=== PATIENT | male | born 1955 | race Caucasian/White ===

== ENCOUNTER 2020-12-16 02:19 | Outpatient (CLI) | payer BC, SELFPAY ==
[2020-12-16 10:02] LABS: HCT 48.5 % (40.0-50.0); HGB 15.7 g/dL (13.5-17.5); MCH 30.4 pg (27.0-33.0); MCHC 32.4 % (32.0-36.0); MPV 10.2 fL (8.0-11.0); Platelet Count 173 10^3/uL (130-400); RBC 5.16 10^6/uL (4.36-5.78); RDW 13.2 % (11.8-14.1); RDW-SD 46.1 fL; WBC 5.51 10^3/uL (4.4-10.8)
[2020-12-16 11:26] LABS: ALT 50 U/L (16-63); AST 24 U/L (15-37); Alkaline Phosphatase 62 U/L (46-116); Anion Gap 4.6 mmol/L (3-11); BUN 19 mg/dL (7-18); Bilirubin, Total 0.5 mg/dL (0.2-1.0); CO2 32.4 mmol/L (21.0-32.0); CREATININE 0.9 mg/dL (0.70-1.30); Calcium 9.1 mg/dL (8.5-10.1); Calculated LDL 111 mg/dL (<100); Chloride 105 mmol/L (98-107); Cholesterol 180 mg/dL (<200); Glucose 93 mg/dL (74-106); HDL Cholesterol 56 mg/dL (40-60); Magnesium 2.1 mg/dL (1.8-2.4); Potassium 4.6 mmol/L (3.5-5.1); Sodium 142 mmol/L (136-145); TSH (W/Ref FT4) 1.33 uIU/mL (0.36-3.74); Triglyceride 69 mg/dL (<150)
[2020-12-16 11:40] LABS: Vitamin D 25 Total 13.6 ng/mL (30-100)
== END 2020-12-16 02:20 | disposition home or self-care (01) ==
PROVIDERS: PCP Student in an Organized Health Care Education/Training Program; Visit Provider Student in an Organized Health Care Education/Training Program
DX: R73.01 Impaired fasting glucose (principal); E86.0 Dehydration; R53.83 Other fatigue; R25.1 Tremor, unspecified; G44.019 Episodic cluster headache, not intractable; G47.30 Sleep apnea, unspecified; M41.50 Other secondary scoliosis, site unspecified; Z79.899 Other long term (current) drug therapy; Z13.220 Encounter for screening for lipoid disorders
CPT/HCPCS: 36415; 80053; 80061; 82306; 85027; 83735; 84443

== ENCOUNTER 2021-01-07 00:30 | Outpatient (CLI) | payer BC, SELFPAY | END 2021-01-07 00:31 | disposition home or self-care (01) | LOC: RT 00:30 | PROVIDERS: PCP Student in an Organized Health Care Education/Training Program; Visit Provider Student in an Organized Health Care Education/Training Program | DX: R53.83 Other fatigue (principal); R51.9 Headache, unspecified | CPT/HCPCS: 94762 ==

== ENCOUNTER 2021-01-24 03:24 | Outpatient (CLI) | payer BC, SELFPAY ==
[2021-01-27 12:26] LABS: Testosterone, Total 934 ng/dL (240-950)
== END 2021-01-24 03:25 | disposition home or self-care (01) ==
LOC: LBO 03:24
PROVIDERS: PCP Student in an Organized Health Care Education/Training Program; Visit Provider Student in an Organized Health Care Education/Training Program
DX: R53.83 Other fatigue (principal)
CPT/HCPCS: 36415; 84402; 84403

== ENCOUNTER 2021-04-21 09:19 | Outpatient (CLI) | payer BC, SELFPAY ==
--- NOTE | 2021-04-21 09:15 | RT.EKG_ITS ---
APPROVED REPORT Exam: Resting ECG Reason for Exam: Z75.81, Z79.899 Patient Location: O HR:75 bpm ECG Measurements Heart Rate 75 AXIS IL 163 P 59 QRSd 92 QRS 78 QT 382 T 77 QTc 427 Conclusion Sinus rhythm...normal P axis, V-rate 60- 99
== END 2021-04-21 09:20 | disposition home or self-care (01) ==
LOC: DI.KIM 09:27
PROVIDERS: PCP Student in an Organized Health Care Education/Training Program; Visit Provider Student in an Organized Health Care Education/Training Program
DX: F90.0 Attention-deficit hyperactivity disorder, predominantly inattentive type (principal); Z79.899 Other long term (current) drug therapy
CPT/HCPCS: 93010

== ENCOUNTER 2021-11-09 01:01 | Outpatient (CLI) | payer BC, SELFPAY ==
--- NOTE | 2021-11-09 08:30 | DI.MRI_ITS ---
Exam(s) MR BRAIN ORBIT FACE NECK WO/W EXAM: MR BRAIN ORBIT FACE NECK WO/W CLINICAL HISTORY: LT SUPERIOR OBLIQUE PALSY, DIPLOPIA, H49.12, H53.2 TECHNIQUE: Multiplanar multisequence MRI of the brain was performed. Both pre and post contrast infused sequences were performed. Contrast injected was 17 mL Dotarem COMPARISON: CR CHEST 2 VIEWS PA,LAT from 06/25/2015 FINDINGS: MRI BRAIN WITHOUT AND WITH IV CONTRAST: There is no evidence of intracranial hemorrhage, mass effect, or shift of midline structures. There are no extra-axial fluid collections. The ventricles are not enlarged or shifted. There are no ring enhancing lesions in the brain and there is no abnormal meningeal enhancement. There is no abnormal signal on diffusion imaging to suggest restricted diffusion/acute ischemic event . SWI: No evidence of microhemorrhages on susceptibility imaging. Expected flow voids are noted. There is no obvious vascular malformation and no obvious aneurysm. There is no cerebellar tonsillar ectopia. Somewhat tortuous left dominant left vertebral artery at t he skull base slightly impresses upon the left side of the medulla oblongata, this of questionable si gnificance. No abnormal signal abnormality in the cerebellar hemispheres nor within thalami. There is no abnorma l periventricular signal abnormality. Pituitary/cavernous sinuses: The pituitary gland is not enlarged. There are no abnormalities seen in the suprasellar cistern nor within the cavernous sinuses and the outer prabhakar of the cavernous sinuse s maintain normal outward concave configuration. Optic chiasm appears unremarkable. Visualized paranasal sinuses are clear. MRI ORBITS WITHOUT AND WITH IV CONTRAST: ORBITS: The anterior and posterior chambers of the globes are intact. No evidence of dysconjugate ga ze. No proptosis nor enopthalmos. No abnormal findings at the level of the lends and retro conal vit reous fluid on either side nor at level the Retin-A nor at the level of the optic nerves and retro co nal fat on either side. No asymmetry in the size of the lacrimal glands. Extraocular muscles are un remarkable. OPTIC NERVES: The intracranial and extracranial portions of the optic nerves are within normal limits . Optic chiasm is within normal limits. No MRI evidence of optic neuritis identified. IMPRESSION: 1. No significant intracranial findings. 2. No significant findings in the orbits. DATA REPOSITORY:
[2021-11-09] MEDS: Normal Saline Flush 10 ML SYR IVP (09:15)
[2021-11-09] MEDS: Gadoterate meglumine 20 ML VIAL 17 ML IVP (09:16)
== END 2021-11-09 01:21 ==
PROVIDERS: PCP Student in an Organized Health Care Education/Training Program; Visit Provider Ophthalmology
DX: H49.12 Fourth [trochlear] nerve palsy, left eye (principal); H53.2 Diplopia
CPT/HCPCS: 70553; 70543

== ENCOUNTER 2022-03-20 02:37 | Outpatient (CLI) | payer BC, SELFPAY ==
[2022-03-20 11:22] LABS: Abs Immature Grans 0.01 10^3/uL (0.0-0.06); Absolute Basophil Count 0.04 10^3/uL (0.0-0.2); Absolute Lymphocyte Count 1.26 10^3/uL (1.2-3.4); Absolute Monocyte Count 0.43 10^3/uL (0.1-0.8); Absolute Neutrophil Count 3.85 10^3/uL (1.2-6.7); Basophils % 0.7; Eosinophils % 5.1; HCT 46.6 % (40.0-50.0); HGB 15.7 g/dL (13.5-17.5); Immature Grans % 0.2; Lymphocytes % 21.4; MCH 29.7 pg (27.0-33.0); MCHC 33.7 % (32.0-36.0); MCV 88 fL (80-95); MPV 9.9 fL (8.0-11.0); Monocytes % 7.3; Neutrophils % 65.3; Platelet Count 168 10^3/uL (130-400); RBC 5.29 10^6/uL (4.36-5.78); RDW 13.2 % (11.8-14.1); RDW-SD 42.5 fL; WBC 5.89 10^3/uL (4.4-10.8)
[2022-03-20 12:17] LABS: ALT 31 U/L (16-63); AST 18 U/L (15-37); Albumin 3.9 g/dL (3.4-5.0); Alkaline Phosphatase 71 U/L (46-116); Anion Gap 9.3 mmol/L (3-11); BUN 27 mg/dL (7-18); Bilirubin, Total 0.3 mg/dL (0.2-1.0); CO2 27.7 mmol/L (21.0-32.0); CREATININE 1.1 mg/dL (0.70-1.30); Calcium 8.9 mg/dL (8.5-10.1); Chloride 105 mmol/L (98-107); Ferritin 64 ng/mL (26-388); Glucose 118 mg/dL (74-106); Potassium 4.1 mmol/L (3.5-5.1); Sodium 142 mmol/L (136-145); Total Protein 7.4 g/dL (6.4-8.2); Vitamin B12 455 pg/mL (193-986)
[2022-03-20 12:30] LABS: Vitamin D 25 Total 29.2 ng/mL (30-100)
[2022-03-20 17:54] LABS: Iron 66 ug/dL (65-175); Total Iron Binding Capacity 303 ug/dL (250-450); Transferrin Sat 22 % (20-55)
[2022-03-20 19:25] LABS: Lab Add On Test DONE
[2022-03-20 20:08] LABS: Hemoglobin A1C 5.6 % (<5.7)
== END 2022-03-20 02:38 | disposition home or self-care (01) ==
LOC: LBO 02:37
PROVIDERS: PCP Student in an Organized Health Care Education/Training Program; Visit Provider Student in an Organized Health Care Education/Training Program
DX: R53.83 Other fatigue (principal); Z86.2 Personal history of diseases of the blood and blood-forming organs and certain disorders involving the immune mechanism; E55.9 Vitamin D deficiency, unspecified; R94.5 Abnormal results of liver function studies; B99.9 Unspecified infectious disease; E46 Unspecified protein-calorie malnutrition; G25.81 Restless legs syndrome; G47.9 Sleep disorder, unspecified; D64.9 Anemia, unspecified; R63.5 Abnormal weight gain; R73.09 Other abnormal glucose
CPT/HCPCS: 36415; 80053; 82306; 82607; 82728; 82746; 83036; 83540; 83550; 85025

== ENCOUNTER → 2022-05-31 12:36 | Outpatient (CLI) | payer BC, SELFPAY ==
--- NOTE | 2022-05-31 10:15 | DI.RAD_ITS ---
Exam(s) XR ELBOW LT COMPLETE EXAM: XR ELBOW LT COMPLETE CLINICAL HISTORY: eval joint space, pain x 3 mos, supination painful M79.602 PAIN LT ARM TECHNIQUE: COMPARISON: No exams were available for comparison FINDINGS: Three views were obtained. The cartilaginous joint spaces appear well maintained. There is no evide nce of an elbow joint effusion or hemarthrosis. No bony abnormality seen. IMPRESSION: RADIATION DOSE DELIVERED: Total DLP
== END ==
PROVIDERS: PCP Student in an Organized Health Care Education/Training Program; Visit Provider Student in an Organized Health Care Education/Training Program
DX: M79.602 Pain in left arm (principal)
CPT/HCPCS: 73080

== ENCOUNTER 2022-08-10 08:08 | Day surgery (SDC) | payer BC, SELFPAY ==
--- NOTE | 2022-08-09 21:09 | W.PM.DSUDISC ---
Date of service: 08/10/22 Time of Service: 10:09 Discharge Plan Disposition Patient Disposition: Home Condition: Good Discharge Details Reason For Visit: screening colonoscopy Attending Provider: Albino Maynard Primary Care Provider: Sanam Burnett Home Meds and New Rx's Prescriptions: Continued sertraline 100 mg tablet 200 mg PO DAILY Qty: 180 0RF Fish Oil 100-160-1,000 mg capsule PO ibuprofen 600 mg tablet 600 mg PO TID Qty: 60 2RF hlmsxefcep-rubkdtb-agfhyhnb 50-325-40 mg capsule 1 cap PO BID PRN (Reason: headache) Qty: 30 1RF Rx Instructions: for migraine headache topiramate [Topamax] 100 mg tablet 100 mg PO BID Qty: 180 3RF fluticasone propionate [Flonase Allergy Relief] 50 mcg/actuation spray,suspension 2 spray intranasal DAILY Qty: 48 4RF Rx Instructions: administer into each nostril montelukast [Singulair] 10 mg tablet 10 mg PO DAILY 90 Days Qty: 90 4RF sildenafil 100 mg tablet 100 mg PO ONCE Qty: 8 11RF Rx Instructions: administer 30 minutes to 4 hours before activity; cholecalciferol (vitamin D3) 25 mcg (1,000 unit) capsule 25 mcg PO DAILY Qty: 90 3RF Rx Instructions: Re-check, Spring 2021 cholecalciferol (vitamin D3) 1,250 mcg (50,000 unit) capsule 1,250 mcg PO QWEEK Qty: 10 0RF Rx Instructions: Take weekly; re-check D levels ~ June 2022 trazodone 50 mg tablet See Rx Instructions .ROUTE .COMPLEX Qty: 90 0RF Dose Instruction: TAKE 1 TABLET AT BEDTIME NEEDED FOR SLEEP Rx Instructions: TAKE 1 TABLET AT BEDTIME NEEDED FOR SLEEP dextroamphetamine sulfate 15 mg capsule, extended release 30 mg PO BID MDD 60mg Qty: 120 0RF Rx Instructions: Continue higher dose.. sumatriptan succinate 100 mg tablet 100 mg PO ONCE Qty: 27 3RF Rx Instructions: Take once prn headache. Ok to repeat in 2 hours. Do not take more than 2 in 24 hours. 27 pills = 3 month supply. bupropion HCl [Wellbutrin XL] 300 mg tablet extended release 24 hr 300 mg PO DAILY Qty: 90 3RF Discontinued bisacodyl [Dulcolax (bisacodyl)] 5 mg tablet,delayed release (DR/EC) 5 mg PO ONCE Qty: 4 0RF Rx Instructions: Take according to provider's instructions for colonoscopy prep. polyethylene glycol 3350 17 gram/dose powder 17 g PO ONCE Qty: 238 0RF Rx Instructions: To be taken as directed by prescriber's office for colonoscopy prep. Discharge Instructions Instructions: Hemorrhoids (GEN), Colorectal Polyps (GEN) Additional Instructions: 1. If tolerated, consume a soft, low fiber diet for 1-2 days. 2[address] Do not drive, drink alcohol, operate machinery, make critical decisions, or do activities that require coordination or balance for 24 hours. 3. Because air was put into your colon during the procedure, expelling air from your rectum (passing gas or farting) is normal. 4. You may not have a bowel movement for 1-3 days because of the colonoscopy prep. This is normal. 5. Go directly to the emergency room if you notice any of the following: Develop chills (warm to touch), or if you have a thermometer and your temperature is above 101 Difficulty breathing or difficultly swallowing Persistent vomiting Severe abdominal pain, other than gas cramps Severe chest pain Black, tarry stools Any bleeding ? exceeding one tablespoon 6. Call your physician if the site where your intravenous was started becomes red, swollen, painful, and warm to touch. 7. Your physician has reviewed your pre-procedure medications. Please continue to take those medications as previously ordered. You will be given specific information/education regarding any changes to your medications before leaving. Activity:: Activity as Tolerated Diet:: As Tolerated Discharge Orders Discharge Orders: Discharge Order (Routine); Ordered 08/09/22 Ordered By: Albino Maynard DS: Diagnosis Discharge Diagnosis (1) Screening for colon cancer: Status: Acute Asessment and Plan: We performed a colonoscopy today to check for polyps and other abnormalities. The quality of your preparation was excellent. The procedure went fantastic. We did identify 1 polyp around 70 cm from your anus. I removed this polyp entirely. I will contact you when I have results of the pathology report.
--- NOTE | 2022-08-09 21:11 | W.COLOREPORT ---
Date of service: 08/10/22 Time of Service: 10:13 Colonoscopy Report Date of procedure: 08/10/22 Pre-op diagnosis general: Screening colonoscopy Post-op diagnosis procedure note: other (Colorectal polyp, internal hemorrhoids) Procedure: colonoscopy Surgeon: Albino Maynard Anesthesia Type: General:No Airway Estimated blood loss (mL): 10 Pathology: other (Polyp around 70 cm from anus) Complications: None Disposition: same day Indications: Rivas is a 67 year old man with a first degree relative with colon cancer as well as a personal history of serrated sessile adenomas. He is here for his next screening colonoscopy Prep: Miralax/Dulcolax Procedure Start Time: 09:46 Procedure End Time: 10:01 Retraction Time: 11 Findings: Colon polyp around 70 cm, internal hemorrhoids Procedure Description: After the induction of monitored anesthetic care, and with the patient in left lateral decubitus position, I began by performing an external anorectal exam.? Perineum and skin were normal, as was the anal verge.? There was no evidence of external hemorrhoids.? Next, I performed a digital rectal exam.? I did not appreciate any abnormal findings.? Next, I advanced a colonoscope into the rectal vault.? I performed retroflexion.? There are grade 1 internal hemorrhoids.? Using insufflation, I then advanced the colonoscope beyond the rectal folds and into the sigmoid colon before advancing towards the cecum.? The quality of the prep was excellent.? The scope was noted to be in the cecum by identification of the ileocecal valve and appendiceal orifice.? I then began withdrawing the colonoscope using repeated irrigation as necessary for full evaluation of the colonic mucosa. Around 70 cm from the anal verge I identified a 0.5 cm polyp. ?It appeared pedunculated in character. ?I was able to remove this with a cold forcep polypectomy. ?I examined the site, and there was minimal bleeding. ?Once this was completed, I continued to withdraw the scope and examine the remainder of the colonic mucosa.?Once the scope was withdrawn to the level of the rectum, great care was taken to examine portions of the rectal folds.? Finally, the scope was withdrawn and the patient was brought to the same-day surgery recovery unit as the anesthetic wore off. ?The findings and instructions were shared with the patient prior to discharge.
[2022-08-10 08:44] VITALS: BP 147/83; PULSE 68; RESP 18; TEMP 36.3; O2SAT 98
[2022-08-10] MEDS: Lactated Ringers 1,000 ML 80 ML IV (09:05)
--- NOTE | 2022-08-10 09:22 | ANES.PREOP_ITS ---
General Info Date of Service Date Performed: 08/10/22 Height: 6 ft Weight: 90 kg Body Mass Index (BMI): 26.9 Surgical Procedure: Operation Date: 08/10/22 09:50 Proposed Procedure Side Surgeon koffi Maynard MD Meds Allergies and Home Medications Allergies Allergy/AdvReac Type Severity Reaction Status Date / Time No Known Allergies Allergy Verified 08/10/22 08:37 Home Medication Medication Instructions Recorded sildenafil 100 mg tablet 100 mg PO ONCE #8 tabs 09/22/20 ibuprofen 600 mg tablet 600 mg PO TID #60 tabs 12/29/20 ptbyzktiev-scxqkil-uvorvirj 50 1 cap PO BID PRN headache #30 caps 07/22/21 mg-325 mg-40 mg capsule topiramate 100 mg tablet (Topamax) 100 mg PO BID #180 tab-caps 07/22/21 cholecalciferol (vitamin D3) 25 25 mcg PO DAILY #90 caps 09/01/21 mcg (1,000 unit) capsule fluticasone propionate 50 2 spray intranasal DAILY #48 grams 10/26/21 mcg/actuation nasal spray,suspension (Flonase Allergy Relief) montelukast 10 mg tablet 10 mg PO DAILY 90 days #90 tabs 10/26/21 (Singulair) cholecalciferol (vitamin D3) 1,250 1,250 mcg PO QWEEK #10 caps 03/20/22 mcg (50,000 unit) capsule sertraline 100 mg tablet 200 mg PO DAILY #180 tab-caps 04/28/22 trazodone 50 mg tablet See Rx Instructions .Route 05/29/22 .COMPLEX #90 tabs dextroamphetamine sulfate 15 mg 30 mg PO BID #120 caps 06/30/22 capsule,extended release bupropion HCl 300 mg 24 hr tablet, 300 mg PO DAILY #90 tab-caps 07/17/22 extended release (Wellbutrin XL) sumatriptan succinate 100 mg tablet 100 mg PO ONCE #27 tab-caps 07/17/22 omega 5-vfp-qze-fish oil 100 cap PO 07/24/22 mg-160 mg-1,000 mg capsule (Fish Oil) Current Visit Medications: Current Medications Generic Name Dose Route Start Last Admin Trade Name Freq PRN Reason Stop Dose Admin Hyoscyamine Sulfate 0.125 mg 08/09/22 21:13 Hyoscyamine 0.125 Mg Sl/Oral/Chew SL DIRECTED PRN Ringer's Solution 1,000 mls @ 80 mls/hr 08/10/22 06:00 08/10/22 09:05 IV 09/08/22 23:59 80 mls/hr INFUSION MALIK Administration IV Miscellaneous Supplies 1 each 08/10/22 06:00 Iv Access IV 09/08/22 23:59 DIRECTED MALIK Ondansetron HCl 4 mg 08/09/22 21:13 Ondansetron 4 Mg/2 Ml Vial IVP Q4H PRN PRN Nausea / Vomiting Sodium Chloride 0 ml 08/10/22 06:00 Normal Saline Flush 10 Ml Syr IV 09/08/22 23:59 PRN PRN Sodium Chloride 0 ml 08/10/22 06:00 Normal Saline 10 Ml Vial IJ 09/08/22 23:59 DIRECTED PRN Sterile Water 0 ml 08/10/22 06:00 Water,Injection,Sterile 10 Ml Vial IJ 09/08/22 23:59 DIRECTED PRN PFSH Active Problems Active Problems: Problem Status Onset Code ADHD (attention deficit hyperactivity disorder), 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 Adenoma of colon at hepatic flexure 08/13/17 D12.3 Anxiety 04/14/13 F41.9 Depression 08/04/15 F32.9 Episodic cluster headache 12/17/12 G44.019 Essential tremor 04/14/13 G25.0 Family history of colon cancer 12/17/12 Z80.0 Hyperlipidemia 12/17/12 E78.5 IFG (impaired fasting glucose) 06/27/17 R73.01 Migraine 12/17/12 G43.909 Mild obstructive sleep apnea 10/11/14 G47.33 Post-void dribbling 08/04/15 N39.43 Scoliosis associated with other condition 12/17/12 M41.50 Vitiligo 05/15/13 L80 Plantar fasciitis 12/17/12 M72.2 Vision changes H53.9 Fatigue R53.83 Back pain M54.9 Hypovitaminosis D E55.9 Nasal polyposis J33.9 Hyposmia R43.8 Diplopia H53.2 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 Extraocular movements intact Weight gain R63.5 Skin lesion of chest wall L98.9 Excessive somnolence disorder G47.10 Low serum vitamin D R79.89 Left arm pain M79.602 Muscle strain of forearm S56.919A AMAURY (obstructive sleep apnea) G47.33 Screening for colon cancer Z12.11 Medical History Medical History ADHD Allergic rhinitis Cluster headaches Family history of colon cancer GERD (gastroesophageal reflux disease) IFG (impaired fasting glucose) Internal hemorrhoids AMAURY (obstructive sleep apnea) Surgical History Surgical History Colonoscopy - MAC (08/13/17) 2006, 2011 H/O endoscopy Hernia, R & L B/L mesh repair; Dr. Fulton [facility] [place] Repair of inguinal hernia (~2007) Tobacco Smoking/Tobacco Use Status: Never Alcohol Alcohol Intake: current Alcohol intake frequency: 0-2 drinks per day Alcohol type: hard liquor Substance Use Substance use: Occasionally Substance use type: marijuana Vital Signs and Lab Results Vital Signs Most Recent Vital Signs in EMR: Most Recent Vital Signs Temp Pulse Resp BP Pulse Ox 36.3 C L 68 18 147/83 H 98 08/10/22 08:44 08/10/22 08:44 08/10/22 08:44 08/10/22 08:44 08/10/22 08:44 Lab Results Blood Type / Crossmatch: No Data to Display Complete Blood Count: No Data to Display Complete Metabolic Panel: No Data to Display Liver Function Panel: No Data to Display Coagulation Panel: No Data to Display Cardiac Panel: No Data to Display Arterial Blood Gas: No Data to Display Venous Blood Gas: No Data to Display Pancreas Panel: No Data to Display Thyroid Panel: No Data to Display Infectious Disease: No Data to Display Blood Cultures: No Data to Display Toxicology Panel: No Data to Display Anesthesia Assessment and Plan Anesthesia History Personal History: No History of Anesthesia Complications Family History: No Family History of Anesthesia Complications Exercise Tolerance Exercise Tolerance: Metabolic Equivalents>4 Pertinent Negatives Pertinent Negatives: No Symptoms of GERD Cardiac & Pulmonary Exam Cardiac Exam: Normal S1/S2 Heart Sounds Pulmonary Exam: Clear Bilateral Breath Sounds Implantable Cardiac Device Does patient have a Pacemaker or an ICD?: No Airway Exam Known Difficult Airway: No Mallampati Class: 3 Mouth Opening: Normal (> 3cm) Thyromental Distance: Greater than 3 cm Neck Range of Motion: Full ROM Neck Circumference: Normal Teeth Condition: Generalized Poor Dentition ASA Classification ASA Score: ASA 2 Emergency Case?: No NPO Status NPO Status: NPO Clears >2 hours, Solids >8 hours Anesthesia Plan Resuscitation Status: Full Code Anesthesia Technique: General Anesthesia Airway Planned: Natural Airway Pain Management: Surgeon and patient request nerve block Monitors Used: Standard Monitors
[2022-08-10 09:33] VITALS: BMI 26.9
--- NOTE | 2022-08-10 09:55 | BOWEL_PTH ---
PATIENT: Moreno Flores LOC: [facility] U#:[id number] AGE/SX: 67/M ROOM: RE08/10/[address]: Albino Maynard MD : 1955 BED: DIS: 08/10/2022 SPEC #: [id number] RECD: 08/10/22 12:56 STATUS: YOLIE REQ #: [id number] SILVIA: 08/10/22 09:[address]: Albino Maynard DEPT: Surgical Specimen RECD BY: Treasure Brownlee ENTERED: 08/10/22 12:57 SP TYPE: Bowel OTHR DR: Sanam Burnett DO Tissues: 1 - BIOPSY BOWEL Procedures: GROSS AND MICRO LEVEL 4 Comments: [id number]
[2022-08-10 10:15] VITALS: BP 128/95; PULSE 81; RESP 16; TEMP 36.2; O2SAT 93
--- NOTE | 2022-08-10 10:21 | W.ANESPOSTOP ---
Postoperative Evaluation Date, Time and Location Date Performed: 08/10/22 Time Performed: 10:27 Patient Location: Day Surgery Unit Vital Signs Most Recent Imported Vital Signs: Most Recent Vital Signs Temp Pulse Resp BP Pulse Ox 36.3 C L 68 18 147/83 H 98 08/10/22 08:44 08/10/22 08:44 08/10/22 08:44 08/10/22 08:44 08/10/22 08:44 Most Recent Manually Entered Vital Signs: Adult Blood Pressure: 128/95 Heart Rate: 81 Respirations: 16 Oxygen Saturation (%): 93 Temperature (C): 36.2 C Pain Score (0-10 Scale): 0 Assessment Mental Status: Awake (Alert & Oriented to Patient Baseline) Airway and Respiratory Function: Patent airway with normal (patient baseline) respiratory exam Cardiovascular Function: Hemodynamically Stable Hydration Status: Adequately Hydrated Nausea & Vomiting: No Nausea or Vomiting Pain: Pt. Denies Any Pain Peripheral Nerve Block: Patient did not receive a nerve block
[2022-08-10 10:30] VITALS: BP 128/95; PULSE 81; RESP 16; TEMPC 36.2; O2SAT 93
[2022-08-10 10:50] VITALS: BP 143/83; PULSE 71; RESP 18; TEMP 36.3; O2SAT 96
[2022-08-10] MEDS: Hyoscyamine 0.125 MG SL/ORAL/CHEW SL (10:54)
== END 2022-08-10 08:09 | disposition home or self-care (01) ==
PROVIDERS: PCP Student in an Organized Health Care Education/Training Program; Visit Provider Surgery
PROC: 0DJD8ZZ Inspection of Lower Intestinal Tract, Via Natural or Artificial Opening Endoscopic (ICD-10-PCS; CPT 45378; principal; 2022-08-10 09:45)
DX: Z12.11 Encounter for screening for malignant neoplasm of colon (principal); K63.5 Polyp of colon; Z80.0 Family history of malignant neoplasm of digestive organs; Z86.010 Personal history of colon polyps; K64.8 Other hemorrhoids
CPT/HCPCS: 45380; 88305; J3490

== ENCOUNTER 2022-10-12 03:00 | Outpatient (CLI) | payer MEDICARE, BC, SELFPAY ==
[2022-10-12 13:00] LABS: Anion Gap 9.5 mmol/L (3-11); BUN 32 mg/dL (7-18); CO2 26.5 mmol/L (21.0-32.0); CREATININE 1.2 mg/dL (0.70-1.30); Calcium 9.1 mg/dL (8.5-10.1); Chloride 107 mmol/L (98-107); Estimated GFR 67.11 (mL/min/1.73m2); Glucose 114 mg/dL (74-106); Potassium 4.2 mmol/L (3.5-5.1); Sodium 143 mmol/L (136-145)
[2022-10-12 13:05] LABS: Iron 66 ug/dL (65-175); Total Iron Binding Capacity 344 ug/dL (250-450); Transferrin Sat 19 % (20-55)
[2022-10-12 13:27] LABS: Vitamin D 25 Total 33.9 ng/mL (30-100)
== END 2022-10-12 03:01 | disposition home or self-care (01) ==
LOC: LOS 03:01
PROVIDERS: PCP Student in an Organized Health Care Education/Training Program; Visit Provider Student in an Organized Health Care Education/Training Program
DX: R53.83 Other fatigue (principal); E46 Unspecified protein-calorie malnutrition; E55.9 Vitamin D deficiency, unspecified; R79.89 Other specified abnormal findings of blood chemistry; G43.909 Migraine, unspecified, not intractable, without status migrainosus
CPT/HCPCS: 36415; 80048; 82306; 83540; 83550

== ENCOUNTER → 2023-01-08 14:05 | Outpatient (BNVA) | payer MEDICARE, BC, SELFPAY | PROVIDERS: PCP Student in an Organized Health Care Education/Training Program; Referring Provider Student in an Organized Health Care Education/Training Program | DX: M77.12 Lateral epicondylitis, left elbow (principal); M70.22 Olecranon bursitis, left elbow | CPT/HCPCS: 99213 ==

== ENCOUNTER → 2023-02-15 14:27 | Outpatient (BNVA) | payer MEDICARE, BC, SELFPAY | PROVIDERS: PCP Student in an Organized Health Care Education/Training Program; Referring Provider Student in an Organized Health Care Education/Training Program; Visit Provider Surgery | DX: L98.9 Disorder of the skin and subcutaneous tissue, unspecified (principal); L82.1 Other seborrheic keratosis; D17.9 Benign lipomatous neoplasm, unspecified | CPT/HCPCS: 99213 ==

== ENCOUNTER → 2023-03-05 10:00 | Outpatient (BNVA) | payer MEDICARE, BC, SELFPAY | PROVIDERS: PCP Student in an Organized Health Care Education/Training Program; Referring Provider Student in an Organized Health Care Education/Training Program; Visit Provider Surgery | DX: L82.1 Other seborrheic keratosis (principal) | CPT/HCPCS: 11402; 99212 ==

== ENCOUNTER 2023-03-05 11:08 | Outpatient (REF) | payer MEDICARE, BC, SELFPAY ==
--- NOTE | 2023-03-05 11:05 | SKI_PTH ---
PATIENT: Moreno Flores LOC: [facility] U#:[id number] AGE/SX: 67/M ROOM: RE03/05/[address]: Lolly Pappas : 1955 BED: DIS: 03/05/2023 SPEC #: [id number] RECD: 03/05/23 12:54 STATUS: YOLIE REMiguel #: [id number] SILVIA: 03/05/23 11:[address]: Lolly Pappas DEPT: Surgical Specimen RECD BY: Treasure Brownlee ENTERED: 03/05/23 12:54 SP TYPE: GABRIELA FERNANDES DR: Sanam Burnett DO Tissues: 1 - SKIN BIOPSY(SHAVE/PUNCH) Procedures: SKIN LEVEL 4 Comments: [id number]
== END 2023-03-05 11:09 | disposition home or self-care (01) ==
LOC: LBN 11:08
PROVIDERS: PCP Student in an Organized Health Care Education/Training Program; Visit Provider Surgery
DX: L82.1 Other seborrheic keratosis (principal)
CPT/HCPCS: 88305

== ENCOUNTER → 2023-03-15 13:02 | Outpatient (BNVA) | payer MEDICARE, BC, SELFPAY | PROVIDERS: PCP Student in an Organized Health Care Education/Training Program; Referring Provider Student in an Organized Health Care Education/Training Program; Visit Provider Surgery | DX: Z48.817 Encounter for surgical aftercare following surgery on the skin and subcutaneous tissue (principal); L72.3 Sebaceous cyst; L82.1 Other seborrheic keratosis ==

== ENCOUNTER 2023-07-19 01:51 | Outpatient (CLI) | payer MEDICARE, BC, SELFPAY ==
[2023-07-19 10:01] LABS: Iron 102 ug/dL (65-175)
[2023-07-19 10:17] LABS: ALT 34 U/L (16-63); AST 15 U/L (15-37); Albumin 3.8 g/dL (3.4-5.0); Alkaline Phosphatase 98 U/L (46-116); Anion Gap 6.4 mmol/L (3-11); BUN 21 mg/dL (7-18); Bilirubin, Total 0.5 mg/dL (0.2-1.0); CO2 31.6 mmol/L (21.0-32.0); CREATININE 0.9 mg/dL (0.70-1.30); Calcium 9.4 mg/dL (8.5-10.1); Calculated LDL 147 mg/dL (<100); Chloride 101 mmol/L (98-107); Cholesterol 215 mg/dL (<200); Estimated GFR 94.19 (mL/min/1.73m2); Ferritin 66 ng/mL (26-388); Glucose 104 mg/dL (74-106); HDL Cholesterol 52 mg/dL (40-60); Potassium 3.9 mmol/L (3.5-5.1); Sodium 139 mmol/L (136-145); Total Protein 7.8 g/dL (6.4-8.2); Triglyceride 82 mg/dL (<150)
[2023-07-19 10:24] LABS: Vitamin D 25 Total 24.5 ng/mL (30-100)
== END 2023-07-19 01:52 | disposition home or self-care (01) ==
LOC: LBO 01:51
PROVIDERS: PCP Student in an Organized Health Care Education/Training Program; Visit Provider Student in an Organized Health Care Education/Training Program
DX: L80 Vitiligo (principal); I10 Essential (primary) hypertension; E55.9 Vitamin D deficiency, unspecified
CPT/HCPCS: 36415; 80053; 80061; 82306; 82728; 83540

== ENCOUNTER → 2023-07-20 00:31 | Outpatient (CLI) | payer MEDICARE, BC, SELFPAY ==
--- NOTE | 2023-07-20 08:45 | DI.US_ITS ---
Exam(s) US CAROTID EXAM: US CAROTID CLINICAL HISTORY: evaluate for stenosis, plaque load,DIZZINESS,ATHEROSCLEROSIS,SYNCOPE,R55. TECHNIQUE: Ultrasound carotids performed using grayscale, color-flow, and spectral Doppler imaging. COMPARISON: No exams were available for comparison FINDINGS: RIGHT CAROTID ARTERY: Plaque: Minimal. Velocity elevation: None. LEFT CAROTID ARTERY: Plaque: Minimal. Velocity elevation: None. VERTEBRAL ARTERIES: Antegrade flow. Measurements: R Bulb: 61.2cm/s PS / 10.6cm/s ED R CCA: 86.7cm/s PS / 10.2cm/s ED R ECA: 60.1cm/s PS / 13.7cm/s ED R ICA Prox: 89.4cm/s PS / 17.5cm/s ED R ICA Mid: 62cm/s PS / 15.7cm/s ED R ICA Distal: 79.1cm/s PS /26cm/s ED R Vert: 44.9cm/s PS / 8.9cm/s ED R SVR: 1 R DVR: 1.7 L Bulb: 67.2cm/s PS / 15.4cm/s ED L CCA: 69.8cm/s PS / 14.1cm/s ED L ECA: 121.1cm/s PS / 12.8cm/s ED L ICA Prox: 54.4cm/s PS / 12.1cm/s ED L ICA Mid: 79.5cm/s PS / 21.9cm/s ED L ICA Distal: 91.7cm/s PS / 23.6cm/s ED L Vert: 78.3cm/s PS / 21.7cm/s ED L SVR: 1.3 L DVR: 1.7 IMPRESSION: No evidence for hemodynamically significant carotid stenosis. Criteria for Carotid Stenosis: Normal: ICA PSV <125 cm/s no plaque or intimal thickening is visible. <50% stenosis: ICA PSV <125 cm/s and plaque or intimal thickening is visible. 50-69% stenosis: ICA PSV is 125-250 cm/s and plaque is visible. >70% stenosis to near occlusion: ICA PSV >250 cm/s with visible plaque and luminal narrowing. DATA REPOSITORY:
== END ==
PROVIDERS: PCP Student in an Organized Health Care Education/Training Program; Visit Provider Student in an Organized Health Care Education/Training Program
DX: E78.5 Hyperlipidemia, unspecified (principal); R42 Dizziness and giddiness; R55 Syncope and collapse; Z82.3 Family history of stroke
CPT/HCPCS: 93880

== ENCOUNTER 2024-09-10 01:14 | Outpatient (CLI) | payer MEDICARE, BC, SELFPAY ==
[2024-09-10 09:24] LABS: Anion Gap 5.1 mmol/L (3-11); BUN 24 mg/dL (7-18); CO2 31.9 mmol/L (21.0-32.0); CREATININE 1.2 mg/dL (0.70-1.30); Calcium 9.4 mg/dL (8.5-10.1); Calculated LDL 120 mg/dL (<100); Chloride 103 mmol/L (98-107); Cholesterol 192 mg/dL (<200); Estimated GFR 66.28 (mL/min/1.73m2); Glucose 108 mg/dL (74-106); HDL Cholesterol 57 mg/dL (40-60); Potassium 4.4 mmol/L (3.5-5.1); Sodium 140 mmol/L (136-145); Triglyceride 78 mg/dL (<150)
== END 2024-09-10 01:15 | disposition home or self-care (01) ==
LOC: LBO 01:15
PROVIDERS: Student in an Organized Health Care Education/Training Program; PCP Nurse Practitioner Family; Referring Provider Nurse Practitioner Family; Visit Provider Nurse Practitioner Family
DX: N20.0 Calculus of kidney (principal)
CPT/HCPCS: 36415; 80048; 80061; 82947; 84153

== ENCOUNTER 2024-09-12 01:24 | Outpatient (CLI) | payer MEDICARE, BC, SELFPAY ==
--- NOTE | 2024-11-20 13:15 | W.NUTRFU ---
Date of service: 09/12/24 Time of Service: 11:30 Nutrition Note NOTE: Rivas referred for nutrition appt for MNT due to Hx of GERD and current BMI >30. I echoed mark' provider recommendations that weight loss will most likely have the most impact on GERD sx's. We also reviewed traditional recommendations with handouts - avoid liquids with meals, avoid spicy/greasy foods and common trigger foods like chocolate, onions, etoh, carbonated bevs, citrus/acid foods. Discussed weight loss and need for targeted exercise, good sleep and good sleep managment as approaches as well. REviewed items that might be considered low hanging fruit with Rivas - limit added sugars and refined starches, increase fiber and plant protein chocies, limit saturated and total fat to reduce kcals. We discussed some sample menu options and setting up menus to be somewhat repetitive for the day time and can change up dinner as he feels the need for different items. Discussed protein and fiber choices at each meal and at any snacks (but stressed no more than 2 PLANNED snacks per day) and no eating after 7pm. Encouraged 2L of water as good fluid goal and reviewed how to track added sugar and fiber to help meet his goals. gave pt my card to contact with any more questions, need to additional resources or desire/need for more follow ups. Time Spent in Nutritional Counseling and Treatment: 25 min
== END 2024-09-12 01:25 | disposition home or self-care (01) ==
LOC: DS 01:24
PROVIDERS: PCP Nurse Practitioner Family; Visit Provider Dietitian, Registered
DX: K21.9 Gastro-esophageal reflux disease without esophagitis (principal)
CPT/HCPCS: 00123; 97802

== ENCOUNTER 2024-12-04 03:53 | Outpatient (CLI) | payer MEDICARE, BC, SELFPAY ==
[2024-12-04 11:05] LABS: Bacteria Rare HPF (Negative); C & S Indicated? No; Crystals Negative HPF (Negative); Epithelial Cells Negative HPF (Negative); Mucus Negative (Negative); RBC 0-2 HPF (0-2)
[2024-12-04 11:06] LABS: BUN 27 mg/dL (7-18); CREATININE 0.9 mg/dL (0.70-1.30); Calcium 9.4 mg/dL (8.5-10.1); Chloride 105 mmol/L (98-107); Estimated GFR 93.61 (mL/min/1.73m2); Glucose 96 mg/dL (74-106); Potassium 4.3 mmol/L (3.5-5.1); Sodium 143 mmol/L (136-145)
[2024-12-04 12:31] LABS: Calcium 9.4 mg/dL (8.5-10.1); TSH (W/Ref FT4) 2.66 uIU/mL (0.36-3.74); Vitamin D 25 Total 30 ng/mL (30-100)
[2024-12-04 19:27] LABS: Parathyroid Hormone,Intact 60 pg/mL (19-88)
== END 2024-12-04 03:54 | disposition home or self-care (01) ==
LOC: LBO 03:54
PROVIDERS: Student in an Organized Health Care Education/Training Program; Absent Provider Nurse Practitioner Family; PCP Nurse Practitioner Family; Visit Provider Nurse Practitioner Family
DX: K05.6 Periodontal disease, unspecified (principal); E55.9 Vitamin D deficiency, unspecified; R53.83 Other fatigue; N20.0 Calculus of kidney
CPT/HCPCS: 36415; 80048; 82306; 81015; 82310; 83970; 84443

== ENCOUNTER → 2025-03-16 10:49 | Outpatient (BNVA) | payer MEDICARE, BC, SELFPAY | PROVIDERS: PCP Nurse Practitioner Family; Referring Provider Nurse Practitioner Family; Visit Provider Nurse Practitioner Gerontology | DX: N20.0 Calculus of kidney (principal) | CPT/HCPCS: 99215; 81002 ==

== ENCOUNTER 2025-04-02 07:05 | Day surgery (SDC) | payer MEDICARE, BC, SELFPAY ==
[2025-04-02] VITALS (25 sets, daily range): BP systolic 119–160; BP diastolic 69–96; PULSE 56–84; RESP 10–24; TEMP 35.9–36.7; O2SAT 92–97; BMI 30.9
[2025-04-02] MEDS: Lactated Ringers 1,000 ML 80 ML IV (07:53)
--- NOTE | 2025-04-02 08:11 | W.PM.HP.N ---
Date of service: 04/02/25 Time of Service: 08:11 Assessment and Plan Assessment and plan (1) Right distal ureteral calculus: Status: Acute Assessment and plan: Clinically, he has not passed his ureteral stone. We will plan to do cystoscopy, right retrograde pyelogram, right ureteroscopy and possible holmium laser lithotripsy of his stone. If the distal ureteral stone can be addressed rather easily, we have the option of running a flexible ureteroscope up to the kidney to address his nonobstructing renal stones. History of Present Illness History of Present Illness Chief Complaint: Right ureteral stone Narrative: This is a 69-year-old gentleman who has a history of calcium based stones. About a year ago, he had an obstructing right ureteral stone that measured about 4 mm and required ureteroscopic stone extraction. He was recently in an emergency department in the [facility] with renal colic. He was found to have a 7 mm distal ureteral stone. He has been treated conservatively but has not passed his stone. He presents now for stone manipulation. He is having right groin discomfort. His symptoms have been managed with tramadol. He is not having any dysuria or gross hematuria. He has not gone into retention. Review of Systems Narrative: No fevers or chills Cataracts. No dysphasia No diabetes or thyroid dysfunction Sleep apnea. No shortness of breath, cough or hemoptysis No chest pain or palpitations Diarrhea. No hepatitis, ulcers, jaundice Hx migraines. Troclear nerve palsy (left eye). No seizures or strokes No bleeding disorders or anemia No gout PFSH All Active Problems (Updated 04/02/25 @ 08:15 by Kalyan Gutierrez MD) Right distal ureteral calculus (Acute) Periodontal disease (Acute) Left elbow pain (Acute) Right shoulder pain (Acute) Nephrolithiasis (Chronic) Obesity (Chronic) Nuclear sclerotic cataract of both eyes (Acute) from [facility] [place] [facility] Optho note form 07/21/24.HE Calculus of ureterovesical junction (UVJ) (Acute) RT, 4mm, passed (per [facility]).. mild hydronephrosis Trochlear nerve palsy, left eye (Acute) [facility] OPH 07/03/23 Severe obstructive sleep apnea (Acute) Wkg with sleep clinic Atherosclerotic plaque (Acute) Minimal per carotid US, 08/2023.. 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 Lock psychiatrist 2015 . Meds reviewed with psych support. TWO 36mg tabs (2' $$). Anxiety (Chronic 04/14/13) Retired, w/ some improved anxiety, but fatigue, 's & ppwk strain. Stress and worry associated with work, impacts sleep Migraine (Acute 12/17/12) Cluster per former PCP, Fiorecet works well as well as sumatriptan (usually for the daytime). Headache disorder (Acute) Ice-pick headache x 4 days .. seconds q 10-20 seconds, but excruciating with no relief from Ibu, Fioriol, Heat, Maxalt.. Exedrine. Cluster headaches (Acute) Episodic cluster headache (Acute 12/17/12) Fiorinol, Sumatriptan. Hyperlipidemia (Acute 12/17/12) 06/2017 labwork: 10-year ASCVD risk = ~6.7% --> no statin indicated at this time Erectile dysfunction (Chronic) Good results with silden .. Hx Urol (-) IFG (impaired fasting glucose) (Acute 06/27/17) Fatigue (Acute) Vitiligo (Acute 05/15/13) Hypovitaminosis D (Acute) Re-starting lower, daily dose, 04/2023 .. 50,000 weekly, Rx 03/20/22per December 2020 labs [ ] 1,000u x 90 days Rx Nasal polyposis (Acute) Hyposmia (Acute) Vertebral artery disease (Acute) left, tortuous, impresses lft med oblongata (unk significance). Vision changes (Acute) Blurry vision continues with distance. Double vision seems corrected with new glasses (6 lenses in past few months @ [place]). Cataracts? Astygmatism? [ ] [facility] Diplopia (Acute) [facility] Ophthalmology note 07/21/24, ordered repeat MRI, AChR antibodies & creatinine ordered.Continue use of prism glasses. Cataracts noted.HE Progressive Double Vision per FACUNDO Alex. Extraocular movements intact (Acute) extraoc mm unremarkable, per mri, 11/2021 Medical History Mild obstructive sleep apnea (10/11/14) 07/10/24 Sleep note: Pt returned CPAP d/t worsening reflux @ noc and inability to exhale against pressure, even after lowered. Would like to try Inspire-referred to [facility] for this.HE Progressed to severe! 09/2023 .. C-Pap, but machine not covered. Dental johnie has helped (Dr. Irving?) Hx living w/ , amicably, until her in ~ 2021 Sebaceous cyst Seborrheic keratoses Tubular adenoma of colon GERD (gastroesophageal reflux disease) Muscle strain of forearm Left, probably supinator 2' supinating motion pain. Left arm pain post MRI, injection-related?? @ elbow, mm insertion.. ~ chipped bone Skin lesion of chest wall Back pain Lower mid-back, painful with bending .. Painful spasms. Scoliosis associated with other condition (12/17/12) Lumbar spine on x-ray Post-void dribbling (08/04/15) Family history of colon cancer (12/17/12) mother combined with recent finding of 2 sessile polyps (in 3 years) has raised his concern Essential tremor (04/14/13) 2013: Benign not bothersome Depression (08/04/15) Hx depression, but amicable divorce (shared home until she , 2022) Adenoma of colon at hepatic flexure (08/13/17) sessile serrated adenoma Allergic rhinitis Family history of colon cancer IFG (impaired fasting glucose) Internal hemorrhoids AMAURY (obstructive sleep apnea) Surgical History H/O endoscopy Hernia, R & L B/L mesh repair; Dr. Fulton [facility] [place] Repair of inguinal hernia (~2007) Colonoscopy - MAC (08/13/17) 2006, 2011, 2022 Family History Mother Disorder of thyroid gland Personal history of malignant neoplasm colon Father , HF at age 92. Hypertensive disorder, systemic arterial Heart disease pacemaker Parkinsonism Sister Disorder of thyroid gland Sister Disorder of thyroid gland Social History Smoking/Tobacco Use Status: Never Smoking risk assessment performed?: Yes Alcohol Intake: current Alcohol Intake frequency: a few times a week Alcohol type: hard liquor Drug use: Occasionally Substance use type: marijuana Details: 04/02/25: smoked marijuana 04/01/25 Adopted: No Caregiver/Support person: No Foster care: No Housing: house Number of Children: 2 number of grandchildren: 3 Communication Needs: Corrective Lenses Education Level: college Details: Bachelor's Do you need help understanding health information?: Rarely current occupation: Physician Practice Consultant - Retired Pets and animals: Yes Pets and animals: dog(s) Sexually active: Yes Do you think of yourself as: straight/heterosexual Current gender identity: male What is your relationship status?: How often do you talk on the phone with friends or family?: three or more times per week How often do you get together with friends or relatives?: once per week Do you belong to any clubs or organized social groups?: no Panel score (0-1 are the most socially isolated patients): 1 What type of physical activity do you participate in: walking Duration: 15-30 minutes/day Frequency: 3-4 times per week Angie/Ad[employer]: [employer] Special angie needs: No Seatbelt use: always Helmet use: Yes Drive intox or ride w/intox class c truck driver: No Do you feel safe at home: Yes Do you feel safe in your relationship?: Yes Meds Allergies and Home Medications Allergies Allergy/AdvReac Type Severity Reaction Status Date / Time No Known Allergies Allergy Verified 04/02/25 07:40 Home Medications ?Medication ?Instructions ?Recorded ?Confirmed ?Type irftsuebdh-mvzswut-trqzsyny 50 1 cap PO BID PRN headache #30 caps 10/14/23 04/02/25 Rx mg-325 mg-40 mg capsule fluticasone propionate 50 2 spray intranasal DAILY #48 grams 10/14/23 04/02/25 Rx mcg/actuation nasal spray,suspension (Flonase Allergy Relief) tadalafil 20 mg tablet 20 mg PO DAILY PRN sexual activity 08/08/24 04/02/25 Rx #20 tabs omeprazole 20 mg capsule,delayed 20 mg PO DAILY #30 caps 09/05/24 04/02/25 Rx release potassium and sodium citrates 50 tab PO kidney stones 09/05/24 11/25/24 History mg-950 mg tablet sumatriptan succinate 100 mg tablet See Rx Instructions .Route 10/14/24 04/02/25 Rx .COMPLEX #27 tabs ibuprofen 600 mg tablet (IBU) See Rx Instructions .Route 11/05/24 04/02/25 Rx .COMPLEX #60 tabs cholecalciferol (vitamin D3) 50 50 mcg PO DAILY #90 caps 11/25/24 04/02/25 Rx mcg (2,000 unit) capsule tamsulosin 0.4 mg capsule (Flomax) 0.4 mg PO QHS 03/16/25 04/02/25 History trazodone 50 mg tablet See Rx Instructions .Route 03/16/25 04/02/25 Rx .COMPLEX #90 tabs tramadol 50 mg tablet 50 mg PO TID-QID PRN pain #30 tabs 03/18/25 04/02/25 Rx Exam Const General: cooperative Neck Neck: supple and other (thick) Resp Effort & Inspection: normal respiratory effort Auscultation: clear to auscultation bilaterally Cardio Rate: regular rate Rhythm: regular rhythm GI Palpation: soft and no masses Neuro General: patient alert, patient awake and patient oriented x3 Results Imaging Imaging Studies: I was able to review his outside CT scan. He had multiple nonobstructing small kidney stones bilaterally, but there was a right distal ureteral stone just at the ureterovesical junction. Last Vital Signs Temp 36.4 C L 04/02/25 07:29 Pulse 75 04/02/25 07:29 Resp 16 04/02/25 07:29 BP 150/85 H 04/02/25 07:29 Pulse Ox 95 04/02/25 07:29 Time Spent Time spent with Patient: <40 minutes Time was spent: other
--- NOTE | 2025-04-02 08:15 | DI.RAD_ITS ---
Exam(s) XR RETROGRADE IN OR EXAM: XR RETROGRADE IN OR CLINICAL HISTORY: Nephrolithiasis TECHNIQUE: 2D and realtime digital imaging was performed. CONTRAST MATERIAL: Refer to procedure report. COMPARISON: CT CT ABDOMEN PELVIS W CONTRAST from 03/08/2025 FINDINGS: Fluoroscopy was provided for Dr. Gutierrez during the performance of a retrograde evaluation of the renal collecting system. Please refer to the procedure report for complete details. Ka,r=13.7 mGy IMPRESSION: RADIATION DOSE DELIVERED: 0.0 0.0 0
--- NOTE | 2025-04-02 08:42 | W.ANESPRE ---
General Info Date of Service Date Performed: 04/02/25 Height: 5 ft 11 in Weight: 100.6 kg Body Mass Index (BMI): 30.9 Surgical Procedure: Operation Date: 04/02/25 08:40 Proposed Procedure Side Surgeon p Cystoscopy/Retrograde/Ureteroscopy/ Stone Manipulation/ ?Stent Right Kalyan Gutierrez MD Actual Procedure Side Surgeon p Cystoscopy/Retrograde/Ureteroscopy/ Stone Manipulation/ ?Stent Right Kalyan Gutierrez MD Pre-Op Diagnosis Post-Op Diagnosis Right ureteral stone Meds Allergies and Home Medications Allergies Allergy/AdvReac Type Severity Reaction Status Date / Time No Known Allergies Allergy Verified 04/02/25 07:40 Home Medication ?Medication ?Instructions ?Recorded jfmtgyjehd-bgsgomb-faxnlvoo 50 1 cap PO BID PRN headache #30 caps 10/14/23 mg-325 mg-40 mg capsule fluticasone propionate 50 2 spray intranasal DAILY #48 grams 10/14/23 mcg/actuation nasal spray,suspension (Flonase Allergy Relief) tadalafil 20 mg tablet 20 mg PO DAILY PRN sexual activity 08/08/24 #20 tabs omeprazole 20 mg capsule,delayed 20 mg PO DAILY #30 caps 09/05/24 release potassium and sodium citrates 50 tab PO kidney stones 09/05/24 mg-950 mg tablet sumatriptan succinate 100 mg tablet See Rx Instructions .Route 10/14/24 .COMPLEX #27 tabs ibuprofen 600 mg tablet (IBU) See Rx Instructions .Route 11/05/24 .COMPLEX #60 tabs cholecalciferol (vitamin D3) 50 50 mcg PO DAILY #90 caps 11/25/24 mcg (2,000 unit) capsule tamsulosin 0.4 mg capsule (Flomax) 0.4 mg PO QHS 03/16/25 trazodone 50 mg tablet See Rx Instructions .Route 03/16/25 .COMPLEX #90 tabs tramadol 50 mg tablet 50 mg PO TID-QID PRN pain #30 tabs 03/18/25 Current Visit Medications: Current Medications Generic Name Dose Route Start Last Admin Trade Name Freq PRN Reason Stop Dose Admin Ringer's Solution 1,000 mls @ 80 mls/hr 04/02/25 06:00 04/02/25 07:53 IV 04/02/25 23:59 80 mls/hr INFUSION MALIK Administration Cefazolin Sodium/Dextrose 2 gm in 50 mls @ 100 mls/hr 04/02/25 06:00 Ancef Duplex IVPB 04/02/25 23:59 PREOP MALIK IV Miscellaneous Supplies 1 each 04/02/25 06:00 Iv Access IV 04/02/25 23:59 DIRECTED MALIK Sodium Chloride 0 ml 04/02/25 06:00 Normal Saline Flush 10 Ml Syr IV 04/02/25 23:59 PRN PRN Sodium Chloride 0 ml 04/02/25 06:00 Normal Saline 10 Ml Vial IJ 04/02/25 23:59 DIRECTED PRN Sterile Water 0 ml 04/02/25 06:00 Water,Injection,Sterile 10 Ml Vial IJ 04/02/25 23:59 DIRECTED PRN PFSH Active Problems Active Problems: Problem Status Onset Code Right distal ureteral calculus Acute N20.1 Periodontal disease Acute K05.6 Left elbow pain Acute M25.522 Right shoulder pain Acute M25.511 Nephrolithiasis Chronic N20.0 Obesity Chronic E66.9 Nuclear sclerotic cataract of both eyes Acute H25.13 Calculus of ureterovesical junction (UVJ) Acute N20.1 Trochlear nerve palsy, left eye Acute H49.12 Severe obstructive sleep apnea Acute G47.33 Atherosclerotic plaque Acute I70.90 Plantar fasciitis Acute 12/17/12 M72.2 Foot pain, bilateral Acute M79.671, M79.672 Heel pain, bilateral Acute M79.671, M79.672 Olecranon bursitis of left elbow Resolved M70.22 Left lateral epicondylitis Acute M77.12 Excessive somnolence disorder Acute G47.10 Excessive daytime sleepiness Acute G47.19 ADHD (attention deficit hyperactivity disorder), inattentive type Chronic 05/12/16 F90.0 Anxiety Chronic 04/14/13 F41.9 Migraine Acute 12/17/12 G43.909 Headache disorder Acute R51.9 Cluster headaches Acute Episodic cluster headache Acute 12/17/12 G44.019 Hyperlipidemia Acute 12/17/12 E78.5 Erectile dysfunction Chronic N52.9 IFG (impaired fasting glucose) Acute 06/27/17 R73.01 Fatigue Acute R53.83 Vitiligo Acute 05/15/13 L80 Hypovitaminosis D Acute E55.9 Nasal polyposis Acute J33.9 Hyposmia Acute R43.8 Vertebral artery disease Acute I77.9 Vision changes Acute H53.9 Diplopia Acute H53.2 Extraocular movements intact Acute Medical History Medical History Mild obstructive sleep apnea (10/11/14) 07/10/24 Sleep note: Pt returned CPAP d/t worsening reflux @ noc and inability to exhale against pressure, even after lowered. Would like to try Inspire[place] [facility] [place]HE Progressed to severe! 09/2023 .. C-Pap, but machine not covered. Dental johnie has helped (Dr. Irving?) Hx living w/ , amicably, until her in ~ 2021 Sebaceous cyst Seborrheic keratoses Tubular adenoma of colon GERD (gastroesophageal reflux disease) Muscle strain of forearm Left, probably supinator 2' supinating motion pain. Left arm pain post MRI, injection-related?? @ elbow, mm insertion.. ~ chipped bone Skin lesion of chest wall Back pain Lower mid-back, painful with bending .. Painful spasms. Scoliosis associated with other condition (12/17/12) Lumbar spine on x-ray Post-void dribbling (08/04/15) Family history of colon cancer (12/17/12) mother combined with recent finding of 2 sessile polyps (in 3 years) has raised his concern Essential tremor (04/14/13) 2013: Benign not bothersome Depression (08/04/15) Hx depression, but amicable divorce (shared home until she , 2022) Adenoma of colon at hepatic flexure (08/13/17) sessile serrated adenoma Allergic rhinitis Family history of colon cancer IFG (impaired fasting glucose) Internal hemorrhoids AMAURY (obstructive sleep apnea) Surgical History Surgical History H/O endoscopy Hernia, R & L B/L mesh repair; Dr. Fulton [facility] [place] Repair of inguinal hernia (~2007) Colonoscopy - MAC (08/13/17) 2006, 2011, 2022 Tobacco Smoking/Tobacco Use Status: Never Passive smoking exposure: No Alcohol Alcohol Intake: current Alcohol intake frequency: a few times a week Alcohol type: hard liquor Substance Use Substance use: Occasionally Substance use type: marijuana Details: 04/02/25: smoked marijuana 04/01/25 Vital Signs and Lab Results Vital Signs Most Recent Vital Signs in EMR: Most Recent Vital Signs Temp Pulse Resp BP Pulse Ox 36.4 C L 75 16 150/85 H 95 04/02/25 07:29 04/02/25 07:29 04/02/25 07:29 04/02/25 07:29 04/02/25 07:29 Imaging and Studies Imaging and Studies Study information below may be from another EMR and interpreted by another provider. Please see original notes in EMR for more complete details. EKG Summary: 04/21/21: Exam: Resting ECG Reason for Exam: Z75.81, Z79.899 Patient Location: O HR:75 bpm ECG Measurements Heart Rate 75 AXIS AK 163 P 59 QRSd 92 QRS 78 QT 382 T77 QTc 427 Conclusion Sinus rhythm...normal P axis, V-rate 60- 99 Carotid Artery Summary:: 07/20/23: Criteria for Carotid Stenosis: No hemodynamically significant carotid stenosis Normal: ICA PSV <125 cm/s no plaque or intimal thickening is visible. <50% stenosis: ICA PSV <125 cm/s and plaque or intimal thickening is visible. 50-69% stenosis: ICA PSV is 125-250 cm/s and plaque is visible. >70% stenosis to near occlusion: ICA PSV >250 cm/s with visible plaque and luminal narrowing. Anesthesia Assessment and Plan Anesthesia History Personal History: No History of Anesthesia Complications Family History: No Family History of Anesthesia Complications Exercise Tolerance Exercise Tolerance: Metabolic Equivalents>4 Pertinent Negatives Pertinent Negatives: No Major Cardiovascular Symptoms or Complaints and No Major Pulmonary Symptoms or Complaints Cardiac & Pulmonary Exam Cardiac Exam: Normal S1/S2 Heart Sounds Pulmonary Exam: Clear Bilateral Breath Sounds Implantable Cardiac Device Does patient have a Pacemaker or an ICD?: No Airway Exam Known Difficult Airway: No Mallampati Class: 3 Mouth Opening: Normal (> 3cm) Thyromental Distance: Greater than 3 cm Neck Range of Motion: Full ROM Neck Circumference: Normal Teeth Condition: Generalized Poor Dentition ASA Classification ASA Score: ASA 3 Emergency Case?: No NPO Status NPO Status: NPO Clears >2 hours, Solids >8 hours Anesthesia Plan Resuscitation Status: Full Code Anesthesia Technique: General Anesthesia Airway Planned: Endotracheal Tube Monitors Used: Standard Monitors and SedLine Preoperative Comments:: GA/ETT/RSI, poorly controlled GERD and patient is not currently taking his medication.
[2025-04-02] MEDS: ceFAZolin 2 GM/50 ML BAG IVPB (09:14)
[2025-04-02] MEDS: Omnipaque 300 MG/ML 50 ML BTL (09:32)
[2025-04-02] MEDS: Lidocaine 2% Jelly 11 ML SYR (09:32)
--- NOTE | 2025-04-02 09:39 | W.PM.DSUDISC ---
Date of service: 04/02/25 Discharge Plan Disposition Patient Disposition: Home Condition: Stable Discharge Details Reason For Visit: ureteroscopy and stone extraction Attending Provider: Kalyan Gutierrez Primary Care Provider: Hiwot Yeboah Recommendations for Follow Up Recommended tests to be ordered by follow up provider: renal ultrasound in 6 to 8 weeks Home Meds and New Rx's Prescriptions: Discontinued tamsulosin [Flomax] 0.4 mg capsule 0.4 mg PO QHS No Action nbqaqpagaa-cvyyuau-yupseadd 50-325-40 mg capsule 1 cap PO BID PRN (Reason: headache) Qty: 30 1RF Rx Instructions: for migraine headache fluticasone propionate [Flonase Allergy Relief] 50 mcg/actuation spray,suspension 2 spray intranasal DAILY Qty: 48 4RF Rx Instructions: administer into each nostril potassium,sodium citrates 50-950 mg tablet PO omeprazole 20 mg capsule,delayed release(DR/EC) 20 mg PO DAILY Qty: 30 3RF cholecalciferol (vitamin D3) 50 mcg (2,000 unit) capsule 50 mcg PO DAILY Qty: 90 2RF tadalafil 20 mg tablet 20 mg PO DAILY PRN (Reason: sexual activity) Qty: 20 3RF Rx Instructions: Continue (approx 30min before sexual activity); do not use more than 1 dose per 24hrs sumatriptan succinate 100 mg tablet See Rx Instructions .ROUTE .COMPLEX Qty: 27 3RF Dose Instruction: TAKE 1 TABLET ONCE NEEDED FOR HEADACHE, OK TO REPEAT IN 2 HOURS, DO NOT TAKE MORE THAN 2 IN 24 HOURS Rx Instructions: TAKE 1 TABLET ONCE NEEDED FOR HEADACHE, OK TO REPEAT IN 2 HOURS, DO NOT TAKE MORE THAN 2 IN 24 HOURS ibuprofen [IBU] 600 mg tablet See Rx Instructions .ROUTE .COMPLEX Qty: 60 2RF Dose Instruction: TAKE 1 TABLET TWICE A DAY NEEDED FOR FEVER OR PAIN (BACK, FOOT PAIN) Rx Instructions: TAKE 1 TABLET TWICE A DAY NEEDED FOR FEVER OR PAIN (BACK, FOOT PAIN) trazodone 50 mg tablet See Rx Instructions .ROUTE .COMPLEX Qty: 90 3RF Dose Instruction: TAKE 1 TABLET AT BEDTIME NEEDED FOR SLEEP Rx Instructions: TAKE 1 TABLET AT BEDTIME NEEDED FOR SLEEP tramadol 50 mg tablet 50 mg PO TID-QID MDD 4 tabs/day PRN (Reason: pain) Qty: 30 0RF Discharge Instructions Additional Instructions: Your stone has been removed, so there is no need to strain your urine You do have a stent in place and there is a string attached to the end of the stent. We will plan to remove the stent in the office early next week. He will have a follow-up appointment in about 6 to 8 weeks. He will have a renal ultrasound done prior to your follow-up visit. Stand Alone Forms: Anesthesia Discharge InstNiki Murry (DSU) Activity:: Activity as Tolerated Shower/Bathe:: 24 hours Diet:: As Tolerated DS: Diagnosis Discharge Diagnosis (1) Right distal ureteral calculus: Status: Acute
--- NOTE | 2025-04-02 09:47 | ROE_ITS ---
Operative Note Operative Note PRE-OP DIAGNOSIS: Right ureteral stone POST-OP DIAGNOSIS: same PROCEDURE: cystoscopy with right retrograde pyelogram, right ureteral balloon dilation, right ureteral stone extraction, insert right ureteral stent SURGEON: Kalyan Gutierrez ANESTHESIA TYPE: Local By Surgeon and General LMA/ETT Refer to Anesthesia Record ESTIMATED BLOOD LOSS: 5 PATHOLOGY: other (stone for chemical analysis) COMPLICATIONS: None Patient was transported to: PACU Implants: 6 Lithuanian by 22 to 30 cm right ureteral stent with safety string attached Indications: This is a 69-year-old gentleman who has a history of calcium-based stones. About a year ago, he required ureteroscopy for an obstructing 4 mm right sided ureteral stone. The procedure was done down in the [place] area by Dr. Romero. While traveling to [place], he again had an episode of renal colic. He was found to have a 7 mm ureteral stone which has not passed with conservative management. He presents now for stone manipulation. Findings: Right distal ureteral stone Procedure Description: The patient was given IV antibiotics and brought to the operating room on 04/02/2025. After successful induction of general anesthesia, he was placed in the dorsal lithotomy position. His genitalia was prepped and draped. 2% Xylocaine jelly was then instilled into the urethra. A 22 Lithuanian rigid cystoscope was passed through the urethra into the bladder. The urethra and bladder were inspected using a 30 degree lens. The pendulous, bulbar and membranous urethra appeared normal with no strictures. The prostatic urethra showed lateral lobe enlargement but no significant median lobe. The bladder neck was then entered and the bladder mucosa was inspected. A very small stone fragment was seen floating within the bladder lumen. Both ureteral orifices were identified. No blood was seen coming from either side. The right orifice was cannulated with a 5 Lithuanian access catheter and a retrograde pyelogram was obtained by injecting Omnipaque through the access catheter under fluoroscopic guidance. A radiopaque filling defect was seen in the right distal ureter. I then passed a guidewire through the lumen of the access catheter and removed the catheter and the cystoscope leaving the wire in place. I passed a 10 cm UroMax balloon over the wire and dilated the ureteral orifice under fluoroscopy. The balloon was deflated and removed. A semirigid ureteroscope was then passed through the urethra and into the bladder. I was able to maneuver the scope into the right ureteral orifice and advanced the scope until stone was visualized. I was able to grasp the stone and a Janelle stone basket and remove it in its entir ety. The stone was sent for chemical analysis. Because of the dilation, we elected to place a ureteral stent. I chose a 6 Lithuanian variable length stent and advanced it over the indwelling wire. The proximal end of the stent was curled in the renal pelvis and the distal end was curled within the bladder. The positioning of the stent was confirmed both fluoroscopically and cystoscopically. The safety string was left on the end of the stent. The string was brought through the urethral meatus and anchored to the dorsum of the penis with a Steri-Strip. The patient tolerated this procedure well. He was taken to the recovery room in stable condition. Date of Procedure: 04/02/25
[2025-04-02] MEDS: fentaNYL 100 MCG/2 ML VIAL IVP ×3 (10:05→10:30)
[2025-04-02] MEDS: Phenazopyridine 200 MG TAB PO (10:17)
--- NOTE | 2025-04-02 10:35 | W.ANESPOSTOP ---
Postoperative Evaluation Date, Time and Location Date Performed: 04/02/25 Time Performed: 10:30 Patient Location: PACU Vital Signs Most Recent Imported Vital Signs: Most Recent Vital Signs Temp Pulse Resp BP Pulse Ox 36.6 C 61 15 129/78 95 04/02/25 10:30 04/02/25 10:31 04/02/25 10:31 04/02/25 10:30 04/02/25 10:31 Pain Score Most Recent Pain Score: Most Recent Pain Score Pain Level 4 04/02/25 10:34 Assessment Mental Status: Awake (Alert & Oriented to Patient Baseline) Airway and Respiratory Function: Patent airway with normal (patient baseline) respiratory exam Cardiovascular Function: Hemodynamically Stable Hydration Status: Adequately Hydrated Nausea & Vomiting: No Nausea or Vomiting Pain: Pain is Moderate or Severe Postoperative Pain Management: Pain being addressed with medication Peripheral Nerve Block: Patient did not receive a nerve block
[2025-04-02] MEDS: traMADol 50 MG TAB PO (11:12)
== END 2025-04-02 12:02 | disposition home or self-care (01) ==
PROVIDERS: PCP Nurse Practitioner Family; Visit Provider Urology
PROC: (CPT 52344; principal; 2025-04-02 08:30)
DX: N20.1 Calculus of ureter (principal); G47.33 Obstructive sleep apnea (adult) (pediatric); E66.9 Obesity, unspecified; F90.9 Attention-deficit hyperactivity disorder, unspecified type; Z68.30 Body mass index [BMI] 30.0-30.9, adult
CPT/HCPCS: 52344; 52352; 52332; 74420; 82365; J0131; J0690; J1100; J1805; J2003; J2405; J2704; J3010; Q9967

== ENCOUNTER → 2025-04-09 08:30 | Outpatient (BNVA) | payer MEDICARE, BC, SELFPAY | PROVIDERS: PCP Nurse Practitioner Family; Referring Provider Nurse Practitioner Family; Visit Provider Urology | DX: N20.1 Calculus of ureter (principal) | CPT/HCPCS: 99212 ==

== ENCOUNTER 2025-05-20 00:12 | Outpatient (CLI) | payer MEDICARE, BC, SELFPAY ==
--- NOTE | 2025-05-20 10:30 | DI.US_ITS ---
Exam(s) US RENAL EXAM: US RENAL CLINICAL HISTORY: ? hydronephrosis after ureteroscopy,calculus distal rt ureter,N20.1. TECHNIQUE: Pace scale, color and spectral Doppler were used. COMPARISON: CT CT ABDOMEN PELVIS W CONTRAST from 03/08/2025 XR RETROGRADE IN OR from 04/02/2025 FINDINGS: Renal size in cm: Right: 11.6. Left: 12.0. Echogenicity: Normal. Hydronephrosis: No. Cyst or mass: There is a 2.6 x 2.7 x 2.5 cm simple cyst in the midpole of the right kidney. There is a 3.5 x 2.8 x 3.1 cm simple cyst in the superior pole of the left kidney. No follow-up is recommended. These have been visualized on prior CT scans. Nephrolithiasis: There are multiple echogenic foci seen in the kidneys bilaterally consistent with nonobstructing stones. Other findings: None. Bladder:Normal. Ureteral jets: Right: Not visualized on this examination. Left: Not visualized on this examination. Prevoid vol:60 cc Postvoid vol:Postvoid urinary bladder volume was not obtained on this examination. Prostate: 21 cc Renal color flow: Symmetric and within normal limits. IMPRESSION: 1. There is no hydronephrosis. 2. Bilateral nephrolithiasis. DATA REPOSITORY:
== END 2025-05-20 00:32 ==
LOC: DI 00:13
PROVIDERS: PCP Nurse Practitioner Family; Visit Provider Urology
DX: N20.1 Calculus of ureter (principal)
CPT/HCPCS: 76770

== ENCOUNTER → 2025-05-26 13:58 | Outpatient (BNVA) | payer MEDICARE, BC, SELFPAY | PROVIDERS: PCP Nurse Practitioner Family; Referring Provider Nurse Practitioner Family; Visit Provider Nurse Practitioner Gerontology | DX: N20.2 Calculus of kidney with calculus of ureter (principal) | CPT/HCPCS: 99213 ==

== ENCOUNTER → 2025-05-28 13:22 | Outpatient (BNVA) | payer MEDICARE, BC, SELFPAY | PROVIDERS: PCP Nurse Practitioner Family; Referring Provider Nurse Practitioner Family; Visit Provider Physical Therapy Assistant | DX: D48.5 Neoplasm of uncertain behavior of skin (principal) | CPT/HCPCS: 99213 ==

== ENCOUNTER → 2025-06-10 12:58 | Outpatient (BNVA) | payer MEDICARE, BC, SELFPAY | PROVIDERS: PCP Nurse Practitioner Family; Referring Provider Nurse Practitioner Family; Visit Provider Physical Therapy Assistant | DX: L98.9 Disorder of the skin and subcutaneous tissue, unspecified (principal) | CPT/HCPCS: 11401 ==

== ENCOUNTER → 2025-06-22 01:38 | Outpatient (CLI) | payer MEDICARE, BC, SELFPAY ==
--- NOTE | 2025-06-22 07:12 | DI.MRI_ITS ---
Exam(s) MR ABDOMEN WO/W EXAM: MR ABDOMEN WO/W CLINICAL HISTORY: further characterize spleen abnormality on ct at [facility],R93.5 TECHNIQUE: Multiplanar multisequence MRI of the Abdomen was performed. CONTRAST MATERIAL: IV Contrast: 20 mL of Dotarem contrast administered. COMPARISON: CT CT ABDOMEN PELVIS W CONTRAST from 02/29/2024 CT RENAL FOR STONES CT(Adult) from 03/02/[address] ABDOMEN PELVIS W CONTRAST from 03/08/2025 US US RENAL from 05/20/2025 FINDINGS: Lung bases: Unremarkable. Liver: Simple cysts. Pancreas: Unremarkable. Gallbladder and Bile Ducts: Unremarkable. Adrenals: Unremarkable. Kidneys: Bilateral simple renal cysts. Spleen: 3.5 centimeter lesion at the inferior portion of the spleen shows a central scar. The signal characteristics and enhancement are consistent with a hemangioma. Aorta: Unremarkable. Soft Tissues: Unremarkable. Bone: Unremarkable. Lymph Nodes: Unremarkable. Stomach and bowel: Unremarkable. Peritoneal cavity: Unremarkable. No evidence of ascites. IMPRESSION: 3.5 centimeter lesion of the spleen is consistent with a hemangioma which is stable in size compared with February of 2024 DATA REPOSITORY:
[2025-06-22] MEDS: Gadoterate meglumine 20 ML VIAL IVP (09:51)
[2025-06-22] MEDS: Normal Saline - Diluent 50 ML VIAL IJ (09:51)
== END ==
LOC: DI 01:38
PROVIDERS: PCP Nurse Practitioner Family; Visit Provider Nurse Practitioner Family
DX: Q89.09 Congenital malformations of spleen (principal)
CPT/HCPCS: 74183